=== PATIENT | female | born 1960 | race Caucasian/White ===

== ENCOUNTER 2024-01-31 13:54 | Emergency (ER) | payer BC, MEDICARE ==
[2024-01-31] MEDS: Ketorolac 30 MG/ML SDV IM ONE (14:36)
[2024-01-31] MEDS: Metoclopramide 10 MG/2 ML SDV IM ONE (14:39)
[2024-01-31] MEDS: diphenhydrAMINE 50 MG/ML SDV IM ONE (14:40)
== END 2024-01-31 15:25 | disposition home or self-care (01) ==
LOC: LL.ED 13:54
DX: G43.909 Migraine, unspecified, not intractable, without status migrainosus (principal); I10 Essential (primary) hypertension; J44.89 Other specified chronic obstructive pulmonary disease; E78.00 Pure hypercholesterolemia, unspecified; E66.9 Obesity, unspecified; E03.9 Hypothyroidism, unspecified; Z88.0 Allergy status to penicillin; Z88.1 Allergy status to other antibiotic agents; Z88.8 Allergy status to other drugs, medicaments and biological substances; Z79.82 Long term (current) use of aspirin; Z79.890 Hormone replacement therapy; Z79.899 Other long term (current) drug therapy; Z87.891 Personal history of nicotine dependence; Z90.49 Acquired absence of other specified parts of digestive tract; Z90.710 Acquired absence of both cervix and uterus
CPT/HCPCS: 96372; 99283; J1200; J1885; J2765